=== PATIENT | female | born 1955 | race Caucasian/White ===

== ENCOUNTER 2016-07-19 11:41 | Emergency (ER) | payer OTHER ==
[~2016-07-19] VITALS: Ht 167.6 cm; Wt 128.8 kg
[~2016-07-19 11:41] MED LIST: AZITHROMYCIN500 M1 PO; CARVEDILOL3.125 MG PO; CHLORTHALIDONE25 MG PO; DIOVAN80 MG PO; FUROSEMIDE40 MG PO; GLYBURIDE MICRON6 MG PO; GLYBURIDE5 MG PO; LANTUS 10100 UNITS/ SC; LO-DOSE ASPIRIN81 M2 PO; METFORMIN HCL1000 MG PO; PREDNISONE20 MG PO; PROVENTIL,2.5 MG/3 M IH; VENTOLIN HFA18 GM IH
[2016-07-19 12:22] LABS: EOSINOPHIL (%) 1.5 % (0-5); EOSINOPHIL COUNT 0.1 K/uL (0-0.3); HEMATOCRIT 45.7 % (36.0-46.0); IMMATURE GRANULOCYTE (%) 0.2 % (0.0-0.7); IMMATURE GRANULOCYTE COUNT 0.2 K/uL; LYMPHOCYTE COUNT 1.7 K/uL (1.0-2.8); MCH 30.7 PG (29.0-34.0); MCHC 33.5 G/DL (30.0-36.0); MCV 91.6 FL (83-99); MEAN PLAT.VOLUME 9.5 uM^3 (9.5-12.4); MONOCYTE (%) 9.6 % (3-12); MONOCYTE COUNT 0.9 K/uL (0-0.8); NEUTROPHIL (%) 70.4 % (45-76); NEUTROPHIL COUNT 6.7 K/uL (1.8-6.4); PLATELET COUNT 236 K/uL (156-360); RBC DIS.WIDTH-CV 13.9 % (11.8-14.6); RBC DIS.WIDTH-SD 45.1 % (39-53); RED BLOOD COUNT 4.99 M/uL (3.80-5.20); WHITE BLOOD COUNT 9.5 K/uL (4.1-10.2)
[2016-07-19 12:35] LABS: CHLORIDE 98 mEq/L (99-109); POTASSIUM 3.9 mEq/L (3.7-5.4); SODIUM 137 mEq/L (136-147)
[2016-07-19 12:36] LABS: GLUCOSE 217 mg/dL (70-99)
[2016-07-19 12:38] LABS: ANION GAP 13 MEQ/L (2-14)
[2016-07-19 12:40] LABS: GFR ESTIMATE (CALCULATED) > 59 mL/min/
[2016-07-19 12:41] LABS: UREA NITROGEN (BUN) 20 mg/dL (9-23)
[2016-07-19 12:44] LABS: TROP-I INTERPRETATION NEGATIVE; TROPONIN-I < 0.01 ng/mL (0.0-0.30)
[2016-07-19 14:17] VITALS: BP 112/64
== END 2016-07-19 14:30 | disposition home or self-care (01) ==
LOC: EME 11:41
PROVIDERS: Emergency Medicine
DX: M62.838 Other muscle spasm (principal); R68.84 Jaw pain
CPT/HCPCS: 80048; 84484; 85025; 99281; 99284

== ENCOUNTER 2016-07-24 17:39 | Emergency (ER) | payer OTHER ==
[~2016-07-24] VITALS: Ht 167.6 cm; Wt 122.7 kg
[2016-07-24 18:23] LABS: MCH 30.5 PG (29.0-34.0); MCHC 33.4 G/DL (30.0-36.0); MCV 91.3 FL (83-99); MEAN PLAT.VOLUME 9.8 uM^3 (9.5-12.4); PLATELET COUNT 246 K/uL (156-360); RBC DIS.WIDTH-CV 13.6 % (11.8-14.6); RBC DIS.WIDTH-SD 44.6 % (39-53); RED BLOOD COUNT 4.82 M/uL (3.80-5.20); WHITE BLOOD COUNT 11.1 K/uL (4.1-10.2)
[2016-07-24 18:34] LABS: CHLORIDE 98 mEq/L (99-109); SODIUM 137 mEq/L (136-147)
[2016-07-24 18:36] LABS: GLUCOSE 124 mg/dL (70-99)
[2016-07-24 18:37] LABS: ANION GAP 14 MEQ/L (2-14)
[2016-07-24 18:40] LABS: GFR ESTIMATE (CALCULATED) 54 mL/min/
[2016-07-24 18:41] LABS: UREA NITROGEN (BUN) 29 mg/dL (9-23)
[2016-07-24 18:43] LABS: TROP-I INTERPRETATION NEGATIVE; TROPONIN-I < 0.01 ng/mL (0.0-0.30)
[2016-07-24 20:59] VITALS: BP 105/37
== END 2016-07-24 21:08 | disposition home or self-care (01) ==
LOC: EME 17:39
DX: E86.0 Dehydration (principal); E78.5 Hyperlipidemia, unspecified; I10 Essential (primary) hypertension
CPT/HCPCS: 71020; 80048; 83880; 84484; 85027; 93005; 99281; 99285

== ENCOUNTER 2016-07-29 20:27 | Emergency (ER) | payer OTHER ==
[~2016-07-29] VITALS: Ht 165.1 cm; Wt 129.3 kg
[2016-07-29 21:34] LABS: CHLORIDE 102 mEq/L (99-109); POTASSIUM 3.6 mEq/L (3.7-5.4); SODIUM 138 mEq/L (136-147)
[2016-07-29 21:36] LABS: GLUCOSE 159 mg/dL (70-99)
[2016-07-29 21:37] LABS: ANION GAP 13 MEQ/L (2-14)
[2016-07-29 21:38] LABS: TOTAL BILIRUBIN 0.3 mg/dL (0.0-1.0)
[2016-07-29 21:39] LABS: ALKALINE PHOSPHATASE 44 IU/L (3-129)
[2016-07-29 21:40] LABS: GFR ESTIMATE (CALCULATED) > 59 mL/min/
[2016-07-29 21:41] LABS: UREA NITROGEN (BUN) 22 mg/dL (9-23)
[2016-07-29 21:45] LABS: EOSINOPHIL (%) 1.7 % (0-5); EOSINOPHIL COUNT 0.2 K/uL (0-0.3); HEMATOCRIT 42.3 % (36.0-46.0); IMMATURE GRANULOCYTE (%) 0.2 % (0.0-0.7); IMMATURE GRANULOCYTE COUNT 0.2 K/uL; LYMPHOCYTE COUNT 2.6 K/uL (1.0-2.8); MCH 30.6 PG (29.0-34.0); MCHC 33.8 G/DL (30.0-36.0); MCV 90.6 FL (83-99); MEAN PLAT.VOLUME 10.2 uM^3 (9.5-12.4); MONOCYTE (%) 9.8 % (3-12); NEUTROPHIL (%) 61.8 % (45-76); PLATELET COUNT 256 K/uL (156-360); RBC DIS.WIDTH-CV 13.4 % (11.8-14.6); RBC DIS.WIDTH-SD 43.6 % (39-53); RED BLOOD COUNT 4.67 M/uL (3.80-5.20); TROP-I INTERPRETATION NEGATIVE; TROPONIN-I 0.01 ng/mL (0.0-0.30); WHITE BLOOD COUNT 9.8 K/uL (4.1-10.2)
[2016-07-29] MEDS ORDERED: BIAXIN500 MG PO (23:46)
[2016-07-29] MEDS ORDERED: ZYRTEC-D1 TABLE1 PO (23:46)
[2016-07-29 23:51] VITALS: BP 109/48
== END 2016-07-30 00:36 | disposition home or self-care (01) ==
LOC: EME 20:27
PROVIDERS: Emergency Medicine
DX: J06.9 Acute upper respiratory infection, unspecified (principal); I10 Essential (primary) hypertension; E11.9 Type 2 diabetes mellitus without complications; Z79.4 Long term (current) use of insulin; Z79.82 Long term (current) use of aspirin
CPT/HCPCS: 71010; 80053; 84484; 85025; 93005; 94640; 99281; 99284

== ENCOUNTER 2016-08-06 14:25 | Emergency (ER) | payer OTHER ==
[~2016-08-06] VITALS: Ht 165.1 cm; Wt 129.4 kg
[~2016-08-06 14:25] MED LIST changes: +BIAXIN500 MG PO; +ZYRTEC-D1 TABLE1 PO
[2016-08-06] MEDS ORDERED: CARVEDILOL6.25 MG PO (15:20)
[2016-08-06 15:22] LABS: EOSINOPHIL (%) 1.7 % (0-5); EOSINOPHIL COUNT 0.2 K/uL (0-0.3); HEMATOCRIT 43.4 % (36.0-46.0); IMMATURE GRANULOCYTE (%) 0.3 % (0.0-0.7); IMMATURE GRANULOCYTE COUNT 0.3 K/uL; LYMPHOCYTE COUNT 1.8 K/uL (1.0-2.8); MCH 30.8 PG (29.0-34.0); MCHC 34.3 G/DL (30.0-36.0); MCV 89.7 FL (83-99); MEAN PLAT.VOLUME 9.9 uM^3 (9.5-12.4); MONOCYTE (%) 10.2 % (3-12); NEUTROPHIL (%) 68.9 % (45-76); NEUTROPHIL COUNT 6.8 K/uL (1.8-6.4); PLATELET COUNT 228 K/uL (156-360); RBC DIS.WIDTH-CV 13.6 % (11.8-14.6); RBC DIS.WIDTH-SD 43.8 % (39-53); RED BLOOD COUNT 4.84 M/uL (3.80-5.20); WHITE BLOOD COUNT 9.9 K/uL (4.1-10.2)
[2016-08-06 15:30] LABS: CHLORIDE 102 mEq/L (99-109); POTASSIUM 3.9 mEq/L (3.7-5.4); SODIUM 140 mEq/L (136-147)
[2016-08-06 15:32] LABS: GLUCOSE 138 mg/dL (70-99)
[2016-08-06 15:33] LABS: ANION GAP 14 MEQ/L (2-14)
[2016-08-06 15:34] LABS: TOTAL BILIRUBIN 0.6 mg/dL (0.0-1.0)
[2016-08-06 15:35] LABS: ALKALINE PHOSPHATASE 40 IU/L (3-129)
[2016-08-06 15:36] LABS: GFR ESTIMATE (CALCULATED) 54 mL/min/
[2016-08-06 15:37] LABS: UREA NITROGEN (BUN) 19 mg/dL (9-23)
[2016-08-06 15:42] LABS: TROP-I INTERPRETATION NEGATIVE; TROPONIN-I < 0.01 ng/mL (0.0-0.30)
[2016-08-06 17:19] LABS: D-DIMER ELISA 0.41 mg/L FEU (< 0.57)
[2016-08-06] MEDS ORDERED: ROBITUSSIN100 MG/5 M PO (18:07)
[2016-08-06] MEDS ORDERED: ZYRTEC-D1 TABLE1 PO (18:07)
[2016-08-06] MEDS ORDERED: ATIVAN1 MG PO (18:07)
[2016-08-06 19:00] VITALS: BP 120/62
== END 2016-08-06 19:01 | disposition home or self-care (01) ==
LOC: EME 14:25
PROVIDERS: Emergency Medicine
DX: J06.9 Acute upper respiratory infection, unspecified (principal); J44.9 Chronic obstructive pulmonary disease, unspecified; E11.9 Type 2 diabetes mellitus without complications; E78.5 Hyperlipidemia, unspecified; Z95.810 Presence of automatic (implantable) cardiac defibrillator; Z79.84 Long term (current) use of oral hypoglycemic drugs; Z88.1 Allergy status to other antibiotic agents
CPT/HCPCS: 71010; 80053; 83880; 84484; 85025; 85379; 99281; 99285